=== PATIENT | female | born 1965 | race Native Hawaiian/Other Pacific Islander ===

== ENCOUNTER 2018-05-13 15:15 | Outpatient (CLI) | payer BC ==
[2018-05-13 16:02] LABS: POTASSIUM 4.4 mmol/L (3.6-5.2)
[2018-05-13 16:05] LABS: PLATELET COUNT 140 K/uL (152-353)
== END 2018-05-13 22:48 | disposition home or self-care (01) ==
LOC: LAB 15:15
PROVIDERS: Internal Medicine
DX: Z00.00 Encounter for general adult medical examination without abnormal findings (principal); E78.00 Pure hypercholesterolemia, unspecified
CPT/HCPCS: 36415; 80053; 80061; 81000; 84443; 85027

== ENCOUNTER 2018-12-16 08:28 | Outpatient (CLI) | payer BC ==
[2018-12-16 09:20] LABS: PLATELET COUNT 122 K/uL (152-353)
== END 2018-12-16 20:02 | disposition home or self-care (01) ==
LOC: LABW 08:28
PROVIDERS: Internal Medicine
DX: M79.672 Pain in left foot (principal); E78.00 Pure hypercholesterolemia, unspecified
CPT/HCPCS: 36415; 80053; 80061; 81000; 84443; 85027

== ENCOUNTER 2019-02-09 18:20 | Emergency (ER) | payer BC ==
[~2019-02-09] VITALS: Ht 162.6 cm; Wt 100.2 kg
[2019-02-09 21:08] LABS: PLATELET COUNT 115 K/uL (152-353)
[2019-02-09 21:54] LABS: POTASSIUM 3.9 mmol/L (3.6-5.2)
[2019-02-09 22:24] VITALS: BP 119/92; TEMP 98.5
== END 2019-02-09 22:25 | disposition home or self-care (01) ==
LOC: ED 18:20
PROVIDERS: Internal Medicine
DX: K52.9 Noninfective gastroenteritis and colitis, unspecified (principal); R19.7 Diarrhea, unspecified; D69.6 Thrombocytopenia, unspecified
CPT/HCPCS: 36415; 80053; 85027; 96360; 96375; 99284; J2405

== ENCOUNTER 2019-08-09 13:59 | Outpatient (CLI) | payer BC | END 2019-08-09 19:18 | disposition home or self-care (01) | LOC: MAMMO 13:59 | DX: Z12.31 Encounter for screening mammogram for malignant neoplasm of breast (principal) ==

== ENCOUNTER 2020-09-01 14:46 | Outpatient (CLI) | payer BC | END 2020-09-01 19:13 | disposition home or self-care (01) | LOC: MAMMO 14:46 | DX: Z12.31 Encounter for screening mammogram for malignant neoplasm of breast (principal); Z13.820 Encounter for screening for osteoporosis; N95.8 Other specified menopausal and perimenopausal disorders ==

== ENCOUNTER 2021-05-08 12:59 | Outpatient (CLI) | payer BC | END 2021-05-08 22:34 | disposition home or self-care (01) | LOC: RESP 12:59 | PROVIDERS: ATTEND Specialist | DX: G62.9 Polyneuropathy, unspecified (principal) | CPT/HCPCS: 95885; 95913 ==

== ENCOUNTER 2023-02-14 08:25 | Outpatient (CLI) | payer BC | END 2023-02-14 19:14 | disposition home or self-care (01) | LOC: RAD 08:25 | PROVIDERS: ATTEND Internal Medicine | DX: Z78.0 Asymptomatic menopausal state (principal) ==